=== PATIENT | male | born 1960 | race Caucasian/White ===

== ENCOUNTER 2021-05-19 09:41 | Emergency (ER) | payer OTHER ==
[~2021-05-19] VITALS: Ht 167.6 cm; Wt 104.3 kg
[2021-05-19] MEDS ORDERED: cloNIDine HCL 0.1 MG TAB PO ONE (10:00)
[2021-05-19] MEDS ORDERED: KETOROLAC TROMETH 60MG/2ML VIAL IM ONE (10:15)
[2021-05-19 11:19] VITALS: BP 142/112
== END 2021-05-19 11:20 | disposition home or self-care (01) ==
LOC: EDBD 09:41 → ER 09:41
DX: I10 Essential (primary) hypertension (principal); G89.4 Chronic pain syndrome; M54.2 Cervicalgia; M54.9 Dorsalgia, unspecified
CPT/HCPCS: 93005; 96372; 99283; J1885